=== PATIENT | female | born 1955 | race Caucasian/White ===

== ENCOUNTER → 2020-12-15 | Outpatient (CLI) | payer OTHER | END | disposition home or self-care (01) | LOC: RAD 15:01 | PROVIDERS: ATTEND Anesthesiology | DX: Z01.818 Encounter for other preprocedural examination (principal); M79.606 Pain in leg, unspecified; I45.2 Bifascicular block | CPT/HCPCS: 71046; 93005 ==

== ENCOUNTER → 2020-12-18 | Outpatient (CLI) | payer OTHER | END | disposition home or self-care (01) | LOC: RAD 16:45 | PROVIDERS: ATTEND Family Medicine | DX: N20.0 Calculus of kidney (principal); R31.9 Hematuria, unspecified | CPT/HCPCS: 74176 ==

== ENCOUNTER 2021-01-21 14:16 | Inpatient (IN) | payer OTHER ==
[~2021-01-21] VITALS: Ht 160 cm; Wt 105.5 kg
--- NOTE | 2021-01-21 14:49 | NUR ---
FIRST CONTACT: "MD TRAVIS WHIPPLE TOLD ME TO COME TO THE ED" LEFT SIDE FLANK PAIN, KNOWN KIDNEY STONE FOR CT NOT LONG AGO. RECENT SPINE STIMULATOR PLACED ON L. SIDE. PT ATTACHED TO MONITOR. VSS. GRIGSBY. AT BEDSIDE.
[2021-01-21 15:59] LABS: ALBUMIN 3.5 g/dL (3.4-5.0); ANION GAP 7 mmol/L (5-15); CALCIUM 8.8 mg/dL (8.5-10.1); CHLORIDE 103 mmol/L (98-107); CREATININE 0.81 mg/dL (0.55-1.02)
[2021-01-21] MEDS ORDERED: ONDANSETRON 2MG/ML, 2ML IVPush ONE (16:00)
[2021-01-21] MEDS ORDERED: ONDANSETRON 2MG/ML, 2ML ONE ×2 (16:00→19:32)
[2021-01-21] MEDS ORDERED: HYDROmorphone 1 MG/ML, 1ML INJ IV ONE (16:00)
[2021-01-21] MEDS ORDERED: HYDROmorphone 2 MG/ML, 1ML ONE (16:01)
[2021-01-21 16:11] LABS: MICROSCOPIC INDICATED
--- NOTE | 2021-01-21 16:11 | NUR ---
PT MEDICATED PER EMAR. VSS. MOISEN.
[2021-01-21 16:55] LABS: BASOPHILS % (AUTO) 0 % (0-1); EOSINOPHILS % (AUTO) 0 % (1-7); LYMPHOCYTES % (AUTO) 8 % (22-44); MEAN CORPUSCULAR HGB CONC 33.8 g/dL (32.4-35.8); MEAN PLATELET VOLUME 8.3 fL (7.4-10.4); MONOCYTES % (AUTO) 7 % (2-9); NEUTROPHILS % (AUTO) 85 % (42-75); PLATELET COUNT 199 x10^3/uL (130-400); RED BLOOD COUNT 5.21 x10^6/uL (3.82-5.3); RED CELL DISTRIBUTION WIDTH 13.2 % (9.6-15.2)
[2021-01-21] MEDS ORDERED: KETOROLAC 30 MG/1 ML ONE (17:32)
[2021-01-21] MEDS ORDERED: KETOROLAC 30 MG/1 ML IVPush ONE (18:00)
[2021-01-21] MEDS ORDERED: OMNIPAQUE 350 MG/ML, 50 ML BOTTLE ONE (18:48)
[2021-01-21] MEDS ORDERED: ONDANSETRON ODT 4 MG PO PRN (19:00)
[2021-01-21] MEDS ORDERED: MIDAZOLAM 1 MG/ML, 2ML ONE (19:32)
[2021-01-21] MEDS ORDERED: ROCURONIUM 10MG/ML,5ML ONE (19:32)
[2021-01-21] MEDS ORDERED: PROPOFOL 10 MG/ML, 20ML ONE (19:32)
[2021-01-21] MEDS ORDERED: SUCCINYLCHOLINE 20 MG/ML, 10ML ONE (19:32)
[2021-01-21] MEDS ORDERED: SUGAMMADEX 200 MG/2 ML IVPush ONE (19:32)
[2021-01-21] MEDS ORDERED: CEFAZOLIN 1,000 MG ONE (19:32)
[2021-01-21] MEDS ORDERED: DIAZEPAM 5 MG/ML, 2ML ONE (20:25)
[2021-01-21] MEDS ORDERED: HALOPERIDOL 5 MG/ML IV PRN (20:30)
[2021-01-21] MEDS ORDERED: DIAZEPAM 5 MG/ML, 2ML IVPush PRN (20:30)
[2021-01-21] MEDS ORDERED: HYDROmorphone 1 MG/ML, 1ML INJ IVPush PRN (20:30)
[2021-01-21] MEDS ORDERED: hydrALAzine 20 MG/ML, 1ML IV PRN (20:30)
[2021-01-21] MEDS ORDERED: ACETAMINOPHEN 325 MG TABLET PO PRN (20:30)
[2021-01-21] MEDS ORDERED: OXYcodone 5 MG/5 ML ORAL.SOL UDC PO PRN (20:30)
[2021-01-21] MEDS ORDERED: MEPERIDINE/PF 25MG/0.5ML IVPush PRN (20:30)
[2021-01-21] MEDS ORDERED: ONDANSETRON 2MG/ML, 2ML IVPush PRN (20:30)
[2021-01-21] MEDS ORDERED: LABETALOL 5MG/ML, 20ML IV PRN (20:30)
[2021-01-21] MEDS ORDERED: KETOROLAC 30 MG/1 ML IV PRN (20:30)
[2021-01-21] MEDS ORDERED: FENTANYL PF 100 MCG/2ML IV PRN (20:30)
[2021-01-21] MEDS ORDERED: PROMETHAZINE 25 MG/ML, 1ML IVPush PRN (20:30)
[2021-01-21] MEDS ORDERED: FENTANYL PF 100 MCG/2ML ONE (20:33)
[2021-01-21] MEDS ORDERED: PHENAZOPYRIDINE 200 MG TABLET ONE (20:36)
[2021-01-21] MEDS ORDERED: PHENAZOPYRIDINE 200 MG TABLET PO ONE (21:00)
[2021-01-21 21:25] VITALS: BP 132/69
[2021-01-21] MEDS ORDERED: MORP30TA81 PO (21:42)
[2021-01-21] MEDS ORDERED: ONDA4TAB7 PO (21:42)
[2021-01-21] MEDS ORDERED: MELO15TA24 PO (21:42)
[2021-01-21] MEDS ORDERED: LEVO75TA5 PO (21:42)
[2021-01-21] MEDS: OXYcodone IR 5MG TABLET PO PRN (23:02)
[2021-01-21] MEDS: KETOROLAC 30 MG/1 ML IV PRN (23:51)
[2021-01-22 00:12] VITALS: BP 124/74
[2021-01-22] MEDS: HYDROmorphone 2 MG/ML, 1ML IVPush PRN ×3 (00:43→08:46)
[2021-01-22] MEDS: LACTATED RINGERS 1,000 ML IV SCH ×3 (00:44→09:55)
[2021-01-22] MEDS: OXYcodone IR 5MG TABLET PO PRN ×3 (03:00→13:44)
[2021-01-22 04:17] VITALS: BP 121/75
[2021-01-22 05:17] LABS: BASOPHILS % (AUTO) 0 % (0-1); EOSINOPHILS % (AUTO) 0 % (1-7); LYMPHOCYTES % (AUTO) 4 % (22-44); MEAN CORPUSCULAR HEMOGLOBIN 30.2 pg (27.0-34.8); MEAN CORPUSCULAR HGB CONC 33.9 g/dL (32.4-35.8); MEAN PLATELET VOLUME 8.2 fL (7.4-10.4); MONOCYTES % (AUTO) 2 % (2-9); NEUTROPHILS % (AUTO) 94 % (42-75); PLATELET COUNT 188 x10^3/uL (130-400); RED BLOOD COUNT 4.72 x10^6/uL (3.82-5.3)
[2021-01-22 05:26] LABS: CALCIUM 8.6 mg/dL (8.5-10.1); CREATININE 0.88 mg/dL (0.55-1.02)
[2021-01-22 05:34] LABS: ANION GAP 2 mmol/L (5-15); CHLORIDE 106 mmol/L (98-107)
[2021-01-22] MEDS: PHENAZOPYRIDINE 200 MG TABLET PO PRN (05:35)
[2021-01-22] MEDS: LEVOTHYROXINE 75 MCG TABLET PO SCH (05:35)
[2021-01-22] MEDS: ONDANSETRON 2MG/ML, 2ML IVPush PRN ×2 (06:21→20:31)
[2021-01-22] MEDS: KETOROLAC 30 MG/1 ML IV PRN ×2 (07:13→20:31)
[2021-01-22 07:39] VITALS: BP 131/66
[2021-01-22] MEDS ORDERED: MORP30TA81 PO (11:26)
[2021-01-22 11:43] LABS: HCT (SEDRATE) 41.1 % (34.6-47.8)
[2021-01-22] MEDS ORDERED: VANCOMYCIN PER PHARMACY MC SCH (12:30)
[2021-01-22] MEDS ORDERED: PHARMACOKINETIC CONSULTATION MC ONE (13:00)
[2021-01-22] MEDS ORDERED: VANCOMYCIN 2,400 MG in SODIUM CHLORIDE 0.9% 500 ML IV ONE (13:00)
[2021-01-22] MEDS ORDERED: PHARMACOKINETIC MONITORING MC PRN (13:00)
[2021-01-22 13:45] VITALS: BP 149/74
[2021-01-22] MEDS: AMPICILLIN/SULBACTAM 3 GM in SODIUM CHLORIDE 0.9% 100 ML IV SCH ×2 (13:45→22:03)
[2021-01-22] MEDS ORDERED: CHLORHEXIDINE 15 ML UDC ONE (15:43)
[2021-01-22] MEDS ORDERED: CHLORHEXIDINE 15 ML UDC PO ONE (16:00)
[2021-01-22] MEDS ORDERED: VANCOMYCIN 1,000 MG ONE (16:08)
[2021-01-22] MEDS ORDERED: FENTANYL PF 250 MCG/5ML ONE (16:26)
[2021-01-22] MEDS ORDERED: MIDAZOLAM 1 MG/ML, 2ML ONE (16:26)
[2021-01-22] MEDS ORDERED: PROPOFOL 50 ML ONE (16:26)
[2021-01-22] MEDS ORDERED: SUCCINYLCHOLINE 20 MG/ML, 10ML ONE (17:22)
[2021-01-22] MEDS ORDERED: ONDANSETRON 2MG/ML, 2ML ONE (17:22)
[2021-01-22] MEDS ORDERED: ROCURONIUM 10MG/ML,5ML ONE (17:22)
[2021-01-22] MEDS ORDERED: PROPOFOL 10 MG/ML, 20ML ONE (17:22)
[2021-01-22] MEDS ORDERED: ONDANSETRON 2MG/ML, 2ML IVPush PRN (17:30)
[2021-01-22] MEDS ORDERED: LABETALOL 5MG/ML, 20ML IV PRN (17:30)
[2021-01-22] MEDS ORDERED: PROMETHAZINE 25 MG/ML, 1ML IVPush PRN (17:30)
[2021-01-22] MEDS ORDERED: EPHEDRINE 50 MG/ML, 1ML IVPush PRN (17:30)
[2021-01-22] MEDS ORDERED: DIAZEPAM 5 MG/ML, 2ML IVPush PRN (17:30)
[2021-01-22] MEDS ORDERED: ACETAMINOPHEN 325 MG TABLET PO PRN (17:30)
[2021-01-22] MEDS ORDERED: MEPERIDINE/PF 25MG/0.5ML IVPush PRN (17:30)
[2021-01-22] MEDS ORDERED: DIPHENHYDRAMINE 50 MG/ML, 1ML IVPush PRN (17:30)
[2021-01-22] MEDS ORDERED: EPHEDRINE 50 MG/ML, 1ML IM PRN (17:30)
[2021-01-22] MEDS ORDERED: OXYcodone 5 MG/5 ML ORAL.SOL UDC PO PRN (17:30)
[2021-01-22] MEDS ORDERED: morphine SULFATE 10 MG/ML, 1ML IVPush PRN (17:30)
[2021-01-22] MEDS ORDERED: FENTANYL PF 100 MCG/2ML IV PRN (17:30)
[2021-01-22] MEDS ORDERED: OXYcodone 5 MG/5 ML ORAL.SOL UDC ONE (17:39)
[2021-01-22] MEDS ORDERED: FENTANYL PF 100 MCG/2ML ONE (17:39)
[2021-01-22] MEDS ORDERED: ACETAMINOPHEN 650 MG/20.3 ML UDC ONE (17:39)
[2021-01-22 20:19] VITALS: BP 126/80
[2021-01-23 00:08] VITALS: BP 141/76
[2021-01-23] MEDS: LACTATED RINGERS 1,000 ML IV SCH ×2 (01:54→10:32)
[2021-01-23] MEDS: OXYcodone IR 5MG TABLET PO PRN ×2 (02:58→21:12)
[2021-01-23] MEDS: ONDANSETRON 2MG/ML, 2ML IVPush PRN (02:59)
[2021-01-23 04:47] LABS: BASOPHILS % (AUTO) 0 % (0-1); EOSINOPHILS % (AUTO) 0 % (1-7); LYMPHOCYTES % (AUTO) 8 % (22-44); MEAN CORPUSCULAR HEMOGLOBIN 30.1 pg (27.0-34.8); MEAN CORPUSCULAR HGB CONC 33.9 g/dL (32.4-35.8); MONOCYTES % (AUTO) 5 % (2-9); NEUTROPHILS % (AUTO) 86 % (42-75); PLATELET COUNT 187 x10^3/uL (130-400); RED BLOOD COUNT 4.18 x10^6/uL (3.82-5.3)
[2021-01-23] MEDS: AMPICILLIN/SULBACTAM 3 GM in SODIUM CHLORIDE 0.9% 100 ML IV SCH ×3 (05:00→22:59)
[2021-01-23 05:01] LABS: ALBUMIN 2.4 g/dL (3.4-5.0); ANION GAP 4 mmol/L (5-15); CHLORIDE 108 mmol/L (98-107)
[2021-01-23 05:04] LABS: ALANINE AMINOTRANSFERASE 63 U/L (12-78); ALKALINE PHOSPHATASE 120 U/L (45-117); BILIRUBIN,TOTAL 0.4 mg/dL (0.2-1.0); CREATININE 0.75 mg/dL (0.55-1.02); TOTAL PROTEIN 6.1 g/dL (6.4-8.2)
[2021-01-23] MEDS: KETOROLAC 30 MG/1 ML IV PRN (05:08)
[2021-01-23] MEDS: PHENAZOPYRIDINE 200 MG TABLET PO PRN ×2 (05:08→21:12)
[2021-01-23] MEDS: LEVOTHYROXINE 75 MCG TABLET PO SCH (06:02)
[2021-01-23 06:37] VITALS: BP 137/78
[2021-01-23] MEDS: VANCOMYCIN 2,000 MG in SODIUM CHLORIDE 0.9% 500 ML IV SCH (10:32)
[2021-01-23 12:39] VITALS: BP 129/76
[2021-01-23 20:19] VITALS: BP 141/71
[2021-01-24 01:05] VITALS: BP 147/83
[2021-01-24] MEDS: OXYcodone IR 5MG TABLET PO PRN ×3 (01:10→11:35)
[2021-01-24] MEDS: VANCOMYCIN 2,000 MG in SODIUM CHLORIDE 0.9% 500 ML IV SCH (03:49)
[2021-01-24] MEDS: PHENAZOPYRIDINE 200 MG TABLET PO PRN (05:39)
[2021-01-24] MEDS: LEVOTHYROXINE 75 MCG TABLET PO SCH (05:40)
[2021-01-24] MEDS ORDERED: OPIUM/BELLADONNA SUPP.RECT 16.2-30 MG PR PRN (06:00)
[2021-01-24] MEDS: AMPICILLIN/SULBACTAM 3 GM in SODIUM CHLORIDE 0.9% 100 ML IV SCH ×2 (06:14→11:29)
[2021-01-24 07:42] VITALS: BP 138/80
[2021-01-24 07:51] LABS: BASOPHILS % (AUTO) 1 % (0-1); EOSINOPHILS % (AUTO) 3 % (1-7); LYMPHOCYTES % (AUTO) 23 % (22-44); MEAN CORPUSCULAR HEMOGLOBIN 29.7 pg (27.0-34.8); MEAN CORPUSCULAR HGB CONC 33.2 g/dL (32.4-35.8); MEAN PLATELET VOLUME 7.8 fL (7.4-10.4); MONOCYTES % (AUTO) 7 % (2-9); NEUTROPHILS % (AUTO) 68 % (42-75); PLATELET COUNT 213 x10^3/uL (130-400); RED BLOOD COUNT 4.28 x10^6/uL (3.82-5.3)
[2021-01-24 07:59] LABS: ALANINE AMINOTRANSFERASE 55 U/L (12-78); ALBUMIN 2.6 g/dL (3.4-5.0); ANION GAP 5 mmol/L (5-15); CALCIUM 8.2 mg/dL (8.5-10.1); CHLORIDE 110 mmol/L (98-107); CREATININE 0.64 mg/dL (0.55-1.02)
[2021-01-24 08:01] LABS: ALKALINE PHOSPHATASE 121 U/L (45-117); BILIRUBIN,TOTAL 0.5 mg/dL (0.2-1.0); TOTAL PROTEIN 6.2 g/dL (6.4-8.2)
[2021-01-24] MEDS ORDERED: DIPHENHYDRAMINE 25 MG CAPSULE PO ONE (12:00)
[2021-01-24 12:25] VITALS: BP 152/76
[2021-01-24] MEDS ORDERED: OPIU1SUP2 PR ×5 (14:16→15:17)
[2021-01-24] MEDS ORDERED: AMOX1TAB64 PO (14:18)
[2021-01-24] MEDS ORDERED: FLUC200T PO (14:20)
== END 2021-01-24 15:30 | disposition home or self-care (01) | DRG 28 ==
LOC: ED 14:46 → SUATTDRO 18:19 → EDIP 18:31 → INTOOBSV 18:31 → 4NE 21:15 → OBSVTOIN 01-22 12:14
PROVIDERS: ADMIT Student in an Organized Health Care Education/Training Program; ATTEND Hospitalist
PROC: 00PV0MZ Removal of Neurostimulator Lead from Spinal Cord, Open Approach (ICD-10-PCS; 2021-01-22)
PROC: 0JPT0MZ Removal of Stimulator Generator from Trunk Subcutaneous Tissue and Fascia, Open Approach (ICD-10-PCS; 2021-01-22)
PROC: 0T778DZ Dilation of Left Ureter with Intraluminal Device, Via Natural or Artificial Opening Endoscopic (ICD-10-PCS; principal; 2021-01-22 16:30)
DX: T85.890A Other specified complication of nervous system prosthetic devices, implants and grafts, initial encounter (principal); A41.9 Sepsis, unspecified organism; N20.2 Calculus of kidney with calculus of ureter; N39.0 Urinary tract infection, site not specified; Q79.60 Ehlers-Danlos syndrome, unspecified; G89.29 Other chronic pain; R53.82 Chronic fatigue, unspecified; Z20.822 Contact with and (suspected) exposure to COVID-19; Z88.2 Allergy status to sulfonamides; Y83.8 Other surgical procedures as the cause of abnormal reaction of the patient, or of later complication, without mention of misadventure at the time of the procedure; Y92.89 Other specified places as the place of occurrence of the external cause
CPT/HCPCS: 36415; 72100; 74176; 76000; 80048; 80053; 81001; 82040; 84145; 85025; 85651; 86140; 87070; 87075; 87077; 87086; 87186; 87205; 87635; 93005; 96374; 96375; G0378; J0295; J0690; J1170; J1885; J2250; J2405; J2704; J3010; J3360; J3370; Q0162; Q9967; C2617; J0330; J7040; J7120; Q0163

== ENCOUNTER 2021-01-26 19:18 | Inpatient (IN) | payer OTHER ==
[~2021-01-26] VITALS: Ht 160 cm; Wt 99.4 kg
[~2021-01-26 19:18] MED LIST: AMOX1TAB64 PO; FLUC200T PO; LEVO75TA5 PO; MELO15TA24 PO; MORP30TA81 PO; ONDA4TAB7 PO; OPIU1SUP2 PR
[2021-01-26] MEDS ORDERED: SODIUM CHLORIDE 0.9% 1,000ML IVBOLUS ONE (20:00)
[2021-01-26] MEDS ORDERED: HYDROmorphone 1 MG/ML, 1ML INJ IV ONE (20:00)
[2021-01-26] MEDS ORDERED: SODIUM CHLORIDE FLUSH 10ML SYR IVF ONE (20:00)
--- NOTE | 2021-01-26 20:00 | NUR ---
PATIENT AMBULATORY TO RESTROOM.
[2021-01-26] MEDS ORDERED: HYDROmorphone 2 MG/ML, 1ML ONE (20:14)
[2021-01-26 20:29] LABS: BASOPHILS % (AUTO) 0 % (0-1); EOSINOPHILS % (AUTO) 3 % (1-7); LYMPHOCYTES % (AUTO) 10 % (22-44); MEAN CORPUSCULAR HEMOGLOBIN 29.8 pg (27.0-34.8); MEAN CORPUSCULAR HGB CONC 33.6 g/dL (32.4-35.8); MEAN PLATELET VOLUME 7.4 fL (7.4-10.4); MONOCYTES % (AUTO) 5 % (2-9); NEUTROPHILS % (AUTO) 83 % (42-75); PLATELET COUNT 283 x10^3/uL (130-400); RED BLOOD COUNT 4.88 x10^6/uL (3.82-5.3)
[2021-01-26 20:36] LABS: ALBUMIN 3.5 g/dL (3.4-5.0); ANION GAP 4 mmol/L (5-15); CALCIUM 8.9 mg/dL (8.5-10.1); CHLORIDE 104 mmol/L (98-107)
[2021-01-26 20:37] LABS: MICROSCOPIC INDICATED
[2021-01-26 20:40] LABS: ALANINE AMINOTRANSFERASE 46 U/L (12-78); ALKALINE PHOSPHATASE 150 U/L (45-117); BILIRUBIN,TOTAL 0.4 mg/dL (0.2-1.0); CREATININE 0.83 mg/dL (0.55-1.02); TOTAL PROTEIN 8.1 g/dL (6.4-8.2)
--- NOTE | 2021-01-26 22:40 | NUR ---
ATTEMPTED TO CALL REPORT X1. NO ONE ANSWERING THE PHONE.
--- NOTE | 2021-01-26 22:42 | NUR ---
NURSE NOT READY TO TAKE REPORT AT THIS TIME SHE IS IN A PATIENTS ROOM PER ANOTHER RN.
--- NOTE | 2021-01-26 22:57 | NUR ---
REPORT GIVEN TO LUIS ANGEL BAH
[2021-01-26] MEDS ORDERED: HYDROmorphone 2 MG/ML, 1ML IVPush PRN (23:30)
[2021-01-27] VITALS: BP 179/82
[2021-01-27] MEDS ORDERED: LEVO1CAP3 PO (01:02)
[2021-01-27] MEDS ORDERED: ACETAMINOPHEN 325 MG TABLET PO PRN (03:30)
[2021-01-27] MEDS ORDERED: PROMETHAZINE 25 MG/ML, 1ML IM PRN (03:30)
[2021-01-27] MEDS ORDERED: OPIUM/BELLADONNA SUPP.RECT 16.2-30 MG PR PRN (03:30)
[2021-01-27] MEDS ORDERED: LABETALOL 5MG/ML, 20ML IVPush PRN (03:30)
[2021-01-27] MEDS: PIPERACILLIN/TAZO 3.375 GM in DEXTROSE 5% 50 ML IV SCH ×4 (04:17→22:24)
[2021-01-27] MEDS: LEVOTHYROXINE 75 MCG TABLET PO SCH (05:58)
[2021-01-27] MEDS ORDERED: OXYcodone IR 5MG TABLET PO ONE (09:00)
[2021-01-27 10:17] VITALS: BP 146/84
[2021-01-27 17:48] VITALS: BP 142/78
[2021-01-27 19:26] VITALS: BP 148/81
[2021-01-27] MEDS: OXYcodone IR 5MG TABLET PO PRN (20:22)
[2021-01-28] MEDS: OXYcodone IR 5MG TABLET PO PRN (01:11)
[2021-01-28 01:30] VITALS: BP 137/77
[2021-01-28] MEDS: PIPERACILLIN/TAZO 3.375 GM in DEXTROSE 5% 50 ML IV SCH ×3 (03:55→19:00)
[2021-01-28] MEDS: LEVOTHYROXINE 75 MCG TABLET PO SCH (05:45)
[2021-01-28 07:40] VITALS: BP 149/73
[2021-01-28] MEDS ORDERED: CHLORHEXIDINE 15 ML UDC ONE (14:58)
[2021-01-28] MEDS ORDERED: CHLORHEXIDINE 15 ML UDC PO ONE (15:00)
[2021-01-28] MEDS ORDERED: MIDAZOLAM 1 MG/ML, 2ML ONE (17:09)
[2021-01-28] MEDS ORDERED: PROPOFOL 50 ML ONE (17:10)
[2021-01-28] MEDS ORDERED: FENTANYL PF 250 MCG/5ML ONE (17:10)
[2021-01-28] MEDS ORDERED: LABETALOL 5MG/ML, 20ML IV PRN (17:30)
[2021-01-28] MEDS ORDERED: KETOROLAC 30 MG/1 ML IM PRN (17:30)
[2021-01-28] MEDS ORDERED: EPHEDRINE 50 MG/ML, 1ML IM PRN (17:30)
[2021-01-28] MEDS ORDERED: PROMETHAZINE 25 MG/ML, 1ML IVPush PRN (17:30)
[2021-01-28] MEDS ORDERED: DIAZEPAM 5 MG/ML, 2ML IVPush PRN (17:30)
[2021-01-28] MEDS ORDERED: OXYcodone 5 MG/5 ML ORAL.SOL UDC PO PRN (17:30)
[2021-01-28] MEDS ORDERED: MEPERIDINE/PF 25MG/0.5ML IVPush PRN (17:30)
[2021-01-28] MEDS ORDERED: EPHEDRINE 50 MG/ML, 1ML IVPush PRN (17:30)
[2021-01-28] MEDS ORDERED: DIPHENHYDRAMINE 50 MG/ML, 1ML IVPush PRN (17:30)
[2021-01-28] MEDS ORDERED: OMNIPAQUE 350 MG/ML, 50 ML BOTTLE ONE (17:37)
[2021-01-28] MEDS ORDERED: ONDANSETRON 2MG/ML, 2ML ONE ×2 (18:03→19:17)
[2021-01-28] MEDS ORDERED: DEXAMETHASONE 4 MG/ML, 1ML ONE (18:03)
[2021-01-28] MEDS ORDERED: CEFAZOLIN 1,000 MG ONE (18:03)
[2021-01-28] MEDS ORDERED: FENTANYL PF 100 MCG/2ML ONE (19:17)
[2021-01-28] MEDS: ONDANSETRON 2MG/ML, 2ML IVPush PRN ×2 (19:24→19:27)
[2021-01-28] MEDS: FENTANYL PF 100 MCG/2ML IV PRN ×2 (19:27→19:33)
[2021-01-28] MEDS ORDERED: OPIUM/BELLADONNA SUPP.RECT 16.2-30 MG ONE (19:37)
[2021-01-28] MEDS ORDERED: PROMETHAZINE 25 MG/ML, 1ML ONE (19:42)
[2021-01-28] MEDS ORDERED: MEPERIDINE/PF 25MG/ML,1ML ONE (19:45)
[2021-01-28] MEDS ORDERED: morphine SULFATE 10 MG/ML, 1ML ONE (19:56)
[2021-01-28] MEDS: morphine SULFATE 10 MG/ML, 1ML IVPush PRN ×2 (19:58→20:09)
[2021-01-28] MEDS: MORPHINE SULFATE 4 MG/ML, 1ML IVPush PRN (21:50)
[2021-01-29] VITALS: BP 174/83
[2021-01-29] MEDS: PIPERACILLIN/TAZO 3.375 GM in DEXTROSE 5% 50 ML IV SCH ×4 (01:02→18:19)
[2021-01-29] MEDS: OXYcodone IR 5MG TABLET PO PRN ×2 (01:35→08:57)
[2021-01-29 01:38] VITALS: BP 176/83
[2021-01-29] MEDS: MORPHINE SULFATE 4 MG/ML, 1ML IVPush PRN ×2 (05:08→11:11)
[2021-01-29] MEDS: LEVOTHYROXINE 75 MCG TABLET PO SCH (05:52)
[2021-01-29] MEDS: ONDANSETRON 2MG/ML, 2ML IVPush PRN ×2 (05:53→17:37)
[2021-01-29 08:49] VITALS: BP 144/81
[2021-01-29] MEDS: morphine SULFATE ORAL.CONC 20 MG/ML PO PRN ×2 (13:02→17:39)
[2021-01-29 13:03] VITALS: BP 126/76
[2021-01-29] MEDS ORDERED: MORP100S3 PO (18:29)
[2021-01-29] MEDS ORDERED: MORP-30 PO (18:29)
[2021-01-29 19:03] VITALS: BP 134/80
== END 2021-01-29 20:28 | disposition home or self-care (01) | DRG 690 ==
LOC: ED 20:33 → EDIP 22:56 → 3N 23:11 → 4NE 01-28 20:56
PROVIDERS: ADMIT Family Medicine; ATTEND Internal Medicine
PROC: 0TP98DZ Removal of Intraluminal Device from Ureter, Via Natural or Artificial Opening Endoscopic (ICD-10-PCS; principal; 2021-01-28 15:30)
DX: N13.6 Pyonephrosis (principal); F11.20 Opioid dependence, uncomplicated; Q79.60 Ehlers-Danlos syndrome, unspecified; E03.9 Hypothyroidism, unspecified; E66.9 Obesity, unspecified; Z20.822 Contact with and (suspected) exposure to COVID-19; Z68.38 Body mass index [BMI] 38.0-38.9, adult; Z80.41 Family history of malignant neoplasm of ovary; Z88.2 Allergy status to sulfonamides
CPT/HCPCS: 36415; 74018; 74176; 76000; 80053; 81001; 82360; 83690; 85025; 87086; 87635; 88300; 96374; G0378; J0690; J1100; J1170; J2175; J2250; J2405; J2543; J2550; J2704; J3010; Q9967; C1758; C1769; J2270; J7030